=== PATIENT | female | born 1935 | race Caucasian/White ===

== ENCOUNTER 2017-06-19 08:19 | Outpatient (CLI) | payer OTHER | END 2017-06-19 18:41 | disposition home or self-care (01) | LOC: SMA 08:19 | PROVIDERS: ATTEND Obstetrics & Gynecology Gynecology | DX: N63.10 Unspecified lump in the right breast, unspecified quadrant (principal); N63.20 Unspecified lump in the left breast, unspecified quadrant; R92.2 Inconclusive mammogram | CPT/HCPCS: 76641; G0204 ==

== ENCOUNTER 2018-02-25 08:20 | Outpatient (CLI) | payer OTHER, MEDICARE | END 2018-02-25 21:06 | disposition home or self-care (01) | LOC: SUS 08:20 | PROVIDERS: ATTEND Obstetrics & Gynecology Gynecology | DX: R92.8 Other abnormal and inconclusive findings on diagnostic imaging of breast (principal) | CPT/HCPCS: 76642; 77065 ==

== ENCOUNTER 2018-09-11 09:54 | Outpatient (CLI) | payer OTHER, BC | END 2018-09-11 20:58 | disposition home or self-care (01) | LOC: SMA 09:54 | PROVIDERS: ATTEND Obstetrics & Gynecology Gynecology | DX: N64.4 Mastodynia (principal) | CPT/HCPCS: 76641; 77066 ==

== ENCOUNTER 2024-01-22 09:24 | Outpatient (CLI) | payer OTHER, BC | END 2024-01-22 19:17 | disposition home or self-care (01) | LOC: SRD 09:24 | PROVIDERS: ATTEND Internal Medicine | DX: J98.11 Atelectasis (principal); R07.81 Pleurodynia; Q25.46 Tortuous aortic arch; M47.814 Spondylosis without myelopathy or radiculopathy, thoracic region; M41.84 Other forms of scoliosis, thoracic region | CPT/HCPCS: 71046; 71100 ==